=== PATIENT | male | born 1985 | race Caucasian/White ===

== ENCOUNTER 2017-01-12 13:13 | Emergency (ER) | payer OTHER, SELFPAY ==
[~2017-01-12] VITALS: Ht 188 cm; Wt 80.5 kg
[2017-01-12 13:23] VITALS: BP 159/102
[2017-01-12] MEDS ORDERED: DEXAMETHASONE 4 MG/ML, 1ML IVPush ONE (14:30)
[2017-01-12] MEDS ORDERED: FAMOTIDINE 20 MG/2 ML IVPush ONE (14:30)
[2017-01-12] MEDS ORDERED: SODIUM CHLORIDE 0.9% 1,000ML IVBOLUS ONE (14:30)
[2017-01-12] MEDS ORDERED: DIPHENHYDRAMINE 50 MG/ML, 1ML IVPush ONE (14:30)
[2017-01-12] MEDS ORDERED: SODIUM CHLORIDE FLUSH 10ML SYR IVF ONE (14:30)
[2017-01-12] MEDS ORDERED: DIPHENHYDRAMINE 50 MG/ML, 1ML ONE (14:40)
[2017-01-12] MEDS ORDERED: DEXAMETHASONE 4 MG/ML, 5ML ONE (14:40)
[2017-01-12] MEDS ORDERED: FAMOTIDINE 20 MG/2 ML ONE (14:40)
[2017-01-12 14:57] LABS: BLOOD UREA NITROGEN 11 mg/dL (7-18)
[2017-01-12 15:03] LABS: IS PT STATUS REG ER OR PRE ER? YES
== END 2017-01-12 16:31 | disposition home or self-care (01) ==
LOC: ED 16:25
DX: T78.1XXA Other adverse food reactions, not elsewhere classified, initial encounter (principal); J98.01 Acute bronchospasm; X58.XXXA Exposure to other specified factors, initial encounter; Z87.891 Personal history of nicotine dependence
CPT/HCPCS: 36415; 71010; 80048; 82040; 84484; 85025; 93005; 96361; 96374; 96375; 99285; J1100; J1200; J7030; S0028